=== PATIENT | female | born 1970 | race Caucasian/White ===

== ENCOUNTER → 2020-12-02 14:28 | Outpatient (CLI) | payer OTHER, SELFPAY ==
--- NOTE | ~2020-12-02 | US_ITS ---
EXAMINATION: US pelvic complete w TV EXAM DATE: 12/02/2020 15:00 INDICATION: N83.201 - Unspecified ovarian cyst, right side. TECHNIQUE: Pelvic transabdominal and transvaginal sonogram was performed. There are multiple graysca le and Doppler images available for interpretation. There is no prior study for comparison. FINDINGS: Uterus measures 8.1 x 5.3 x 5.3 cm, and is morphologically normal. Endometrial stripe patricia sures 1.4 mm, within normal limits. There is no free pelvic fluid. Right adnexa: The ovary measures 3.2 x 2.8 x 3.5 cm and is morphologically normal, likely contains th e dominant follicle measuring 2.4 cm. Ovarian vascular flow confirmed. Left adnexa: The ovary measures 2.4 x 1.7 x 2.8 cm and is morphologically normal. Ovarian vascular fl ow confirmed. IMPRESSION: 1. Unremarkable pelvic ultrasound exam. Reviewed, dictated and finalized at location B.
== END ==
PROVIDERS: Visit Provider Obstetrics & Gynecology
DX: N83.201 Unspecified ovarian cyst, right side (principal)
CPT/HCPCS: 76830; 76856

== ENCOUNTER 2021-12-17 14:29 | Outpatient (CLI) | payer OTHER, SELFPAY ==
--- NOTE | ~2021-12-17 | MM_ITS ---
EXAMINATION: MM screening elvis BI w raffy HISTORY: Screening TECHNIQUE: Craniocaudal and mediolateral oblique 3-D tomosynthesis images were obtained and synthetic 2-D images were generated. CAD analysis was submitted and interpreted. COMPARISON: Comparison to multiple prior studies sequentially, with oldest reviewed study dated 04/03. BREAST PARENCHYMAL COMPOSITION: There are scattered areas of fibroglandular density. FINDINGS: There are developing asymmetries in the upper outer quadrant of the right breast with possi ble architectural distortion. The left breast is stable without evidence for malignancy. IMPRESSION: 1. Developing right breast asymmetries with possible architectural distortion. 2. Additional mammographic views and possible breast ultrasound are recommended. BI-RADS Category 0: Incomplete: Needs additional imaging evaluation. Reviewed, dictated and finalized at location A. IMPRESSION: 1. Developing right breast asymmetries with possible architectural distortion. 2. Additional mammographic views and possible breast ultrasound are recommended . BI-RADS Category 0: Incomplete: Needs additional imaging evaluation.
== END 2021-12-17 14:30 | disposition home or self-care (01) ==
PROVIDERS: PCP Physician Assistant Medical; Visit Provider Obstetrics & Gynecology
DX: Z12.31 Encounter for screening mammogram for malignant neoplasm of breast (principal); R92.8 Other abnormal and inconclusive findings on diagnostic imaging of breast
CPT/HCPCS: 77063; 77067

== ENCOUNTER 2022-01-18 13:27 | Outpatient (CLI) | payer OTHER, SELFPAY ==
--- NOTE | ~2022-01-18 | MMUS_ITS ---
EXAMINATION: MM diagnostic elvis RT w raffy, US breast RT limited HISTORY: Follow-up right breast asymmetry TECHNIQUE: Additional 3-D tomosynthesis images of the right breast were performed and synthetic 2-D i mages were generated. CAD analysis was submitted and interpreted. High resolution right breast ultras ound was performed. COMPARISON: Comparison to multiple prior studies sequentially, with oldest reviewed study dated 04/03. BREAST PARENCHYMAL COMPOSITION: BREAST PARENCHYMAL COMPOSITION: There are scattered areas of fibroglandular density. FINDINGS: MAMMOGRAPHIC FINDINGS: There are no suspicious masses, calcifications or architectural distortion in the right breast to sug gest malignancy. Focal asymmetry is less dense with spot compression views. ULTRASOUND: Limited right breast ultrasound: Normal heterogeneous echotexture without focal solid or cystic mass. IMPRESSION: 1. No evidence for malignancy in the right breast. 2. Routine yearly screening mammogram and regular clinical breast examination are recommended. BI-RADS Category 2: Benign finding(s). Reviewed, dictated and finalized at location A. IMPRESSION: 1. No evidence for malignancy in the right breast. 2. Routine yearly screening mammogram and regular clinical breast examination a re recommended. BI-RADS Category 2: Benign finding(s).
== END 2022-01-18 13:28 | disposition home or self-care (01) ==
LOC: ANHIMG 13:27
PROVIDERS: PCP Physician Assistant Medical; Visit Provider Obstetrics & Gynecology
DX: R92.8 Other abnormal and inconclusive findings on diagnostic imaging of breast (principal)
CPT/HCPCS: 76642; 77061; 77065; G0279

== ENCOUNTER 2022-08-18 01:18 | Day surgery (SDC) | payer OTHER, SELFPAY ==
[2022-08-04 15:01] VITALS: BMI 33.8
--- NOTE | 2022-08-04 15:18 | PC.NURSE ---
Report to the Outpatient Waiting Room, entrance under the green pavilion located off [facility], at time _0600 on date _08/18/22 Planned Procedure Time: _0730. Time changes happen often and if your time is changed the preop area will call you the afternoon before. - You and your visitor will be asked to self-screen and do not enter if you have any COVID symptoms. - Only one visitor is requested with a max of two and NO children visitors are allowed at this time. - The patient visitor may be requested to leave or wait in car when not with patient due to distancing restrictions. - A mask is optional within the hospital at this time. Patients may have clear liquids (water, carbonated beverages, clear teas, apple juice) until 3 hours prior to surgery with a maximum of 20 ounces. - No food from midnight until time of surgery - Infants may have breast milk until 4 hours before surgery, infant formula 6 hours prior to surgery. - Children will be allowed to drink immediately following surgery. If applicable, please bring a bottle or sippy cup to assist with drinking. Juice, water, soda, and popsicles are readily available. For infants on formula, please bring formula the day of surgery. Pacifiers are allowed. Take the following medications with a SIP of water the morning of surgery: _n/a__ DO NOT STOP ANY OF YOUR OTHER PRESCRIPTION MEDICATIONS PRIOR TO SURGERY ?EXCEPT THE FOLLOWING Medications to discontinue per physician _vitamins/supplements___ Date to take last dose_08/15/22____ Please no make-up, nail equatorial guinean, hairspray, perfume, deodorant, or body powder the day of surgery. No jewelry (including any body piercings) or valuables the day of surgery, leave them at home. Please take a shower or bath the night before, or the morning of, surgery with an antibacterial soap. Wear comfortable, loose fitting clothing. Children are encouraged to wear pajamas. - Jewelry must be removed prior to entering the operating room. Rings and piercings that are not removed may be cut off. - The hospital will not accept responsibility for valuables. - Please leave all valuables, including medications, at home the day of surgery. If you are going home after surgery, a licensed petroleum transport driver must drive you home. - NO public transportation without another adult if you receive anesthesia. - We recommend that an adult stay with you for 24 hours following discharge. - We also recommend that you do not drive, make important decision, drink alcoholic beverages, or take any drugs that were not prescribed by your health care provider for at least 24 hours after your discharge time. For Pediatric surgeries, we recommend two adults accompany the child home. Follow any additional instructions given to you from your surgeon. If you or anyone in your household have experienced Covid symptoms in the past week, please notify your surgeon or the nurse liaison at the phone number below for possible testing. Telephone instructions given to Leia Gonzalez and asked if any additional questions and then verbalized understanding. Patient advised to call surgeon office or pre surgery nurse liaison [phone] if any additional questions.
--- NOTE | 2022-08-18 08:34 | PM.IMHP ---
H&P: HPI History of Present Illness Date/Time: 08/18/22 08:34 Chief Complaint: Heavy periods Narrative: She has a history of intermittently heavy periods. When options of oral progesterone contraceptive pills progesterone IUD Nexplanon Depo-Provera endometrial ablation hysterectomy. She has had a normal endometrial biopsy recently. Has opted for endometrial ablation. Review of Systems Review of Systems: All systems reviewed & are unremarkable except as noted in HPI and below Constitutional: Constitutional: Reports no additional constitutional complaints Eyes: Eyes: Reports no additional eye complaints Cardiovascular: Cardiovascular: Reports no additional cardiovascular complaints Respiratory: Respiratory: Reports no additional respiratory complaints Gastrointestinal: Gastrointestinal: Reports no additional gastrointestinal complaints Genitourinary: Genitourinary: Reports no additional female genitourinary complaints and Reports as per HPI Integumentary/Breasts: Skin/Breast: Reports system reviewed and no additional complaints, except as docu Neurologic: Reports system reviewed and no additional complaints, except as documented Psychiatric: Psychiatric: Reports no additional psychiatric complaints Hematologic/Lymphatic: Hematologic/Lymphatic: Reports no additional hematologic/lymphatic complaints [facility] Past Medical History Medical History Anemia Body mass index [BMI] 40.0-44.9, adult (10/04/16) Depression Encounter for gynecological examination (general) (routine) without abnormal findings Fatigue Hyperlipidemia Hypertension Hypothyroidism Vaginal delivery x 3 Vaginal irritation Surgical History Surgical History History of appendectomy History of cholecystectomy History of laparoscopy Family History Family History Grandparent Family history of malignant neoplasm of breast Social History Social History Smoking status: Never smoker Second hand tobacco smoke exposure: No Alcohol intake: never Alcohol use details: Occassionally a few times a month maybe Substance use: never Substance use type: does not use Living arrangements: with family Occupation/Education: occupation Gender identity (if verbalized by the patient): Female Sexual Orientation (if Verbalized by the Patient): Straight or Heterosexual Spiritual care concerns: No Meds Home Medications and Allergies Home Medications Medication Instructions Recorded Confirmed Type diltiazem HCl 180 mg capsule,24 180 mg PO DAILY #90 caps 06/03/22 08/04/22 Rx hr,extended release escitalopram oxalate 20 mg tablet 20 mg PO DAILY #90 tabs 06/03/22 08/04/22 Rx esomeprazole magnesium 40 mg 40 mg PO DAILY #90 caps 06/03/22 08/04/22 Rx capsule,delayed release (Nexium) ferrous sulfate 325 mg (65 mg 325 mg PO DAILY #90 tabs 06/03/22 08/04/22 Rx iron) tablet olmesartan 40 mg tablet (Benicar) 40 mg PO DAILY #90 tabs 06/03/22 08/04/22 Rx vitamin B complex (B 1 tablet PO DAILY #90 tabs 06/03/22 08/04/22 Rx Complex-Vitamin B12 tablet) cholecalciferol (vitamin D3) 1,250 50,000 unit PO WEEKLY #12 tabs 06/14/22 08/04/22 Rx mcg (50,000 unit) tablet progesterone micronized 200 mg 200 mg PO QHS 30 days #30 caps 06/18/22 08/04/22 Rx capsule (Prometrium) levothyroxine 50 mcg tablet See Rx Instructions .Route 08/02/22 08/04/22 Rx .COMPLEX #90 tabs bupropion HCl 150 mg 24 hr tablet, 150 mg PO HS 08/04/22 08/04/22 History extended release turmeric 400 mg capsule 1 mg PO HS 08/04/22 08/04/22 History Allergies Allergy/AdvReac Type Severity Reaction Status Date / Time erythromycin base Allergy Intermediate upset Verified 08/04/22 15:15 stomach clindamycin AdvReac Intermediate upset
--- NOTE | 2022-08-18 12:01 | WPDHPUPDATE1 ---
History and Physical Update Update Date/Time: 08/18/22 12:01 History and Physical has been reviewed, including an updated exam of the patient. There are NO changes in the patient's condition. Risks, benefits, and alternatives have been discussed and questions answered. Patient agrees to proceed with procedure.
[2022-08-18 12:05] VITALS: BP 138/80; PULSE 67; RESP 16; TEMP 36.2; O2SAT 99
[2022-08-18] MEDS: ACETAMINOPHEN 500 MG TABLET 1000 MG PO (12:06)
--- NOTE | 2022-08-18 13:12 | WPDANESEPPF ---
Anes - Initial Pre Proc Eval Procedure: Operation Date: 08/18/22 14:00 Proposed Procedures p Hysteroscopy Dilation and Curettage with Aveta Endometrial Ablation - Jessee Raya MD Date/Time: 08/18/22 13:12 Surgeon: Jessee Raya MD Pre Op Diagnosis: menorrhagia Patient Data Age: 52 Gender: F Height: 1.7 m Weight: 114.9 kg Last Vital Signs Temp 97.1 F L 08/18/22 12:05 Pulse 67 08/18/22 12:05 Resp 16 08/18/22 12:05 BP 138/80 08/18/22 12:05 Pulse Ox 99 08/18/22 12:05 O2 Del Method Room Air 08/18/22 12:05 Allergies Allergy/AdvReac Type Severity Reaction Status Date / Time erythromycin base Allergy Intermediate upset Verified 08/18/22 12:04 stomach clindamycin AdvReac Intermediate upset Verified 08/18/22 12:04 stomach Home Medications Medication Instructions Recorded Confirmed Type diltiazem HCl 180 mg capsule,24 180 mg PO DAILY #90 caps 06/03/22 08/04/22 Rx hr,extended release escitalopram oxalate 20 mg tablet 20 mg PO DAILY #90 tabs 06/03/22 08/04/22 Rx esomeprazole magnesium 40 mg 40 mg PO DAILY #90 caps 06/03/22 08/04/22 Rx capsule,delayed release (Nexium) ferrous sulfate 325 mg (65 mg 325 mg PO DAILY #90 tabs 06/03/22 08/04/22 Rx iron) tablet olmesartan 40 mg tablet (Benicar) 40 mg PO DAILY #90 tabs 06/03/22 08/04/22 Rx vitamin B complex (B 1 tablet PO DAILY #90 tabs 06/03/22 08/04/22 Rx Complex-Vitamin B12 tablet) cholecalciferol (vitamin D3) 1,250 50,000 unit PO WEEKLY #12 tabs 06/14/22 08/04/22 Rx mcg (50,000 unit) tablet progesterone micronized 200 mg 200 mg PO QHS 30 days #30 caps 06/18/22 08/04/22 Rx capsule (Prometrium) levothyroxine 50 mcg tablet See Rx Instructions .Route 08/02/22 08/04/22 Rx .COMPLEX #90 tabs bupropion HCl 150 mg 24 hr tablet, 150 mg PO HS 08/04/22 08/04/22 History extended release turmeric 400 mg capsule 1 mg PO HS 08/04/22 08/04/22 History Patient hx anesthesia problems: none Family hx anesthesia problems: none Results Review: All pre-operative results and documents have been reviewed as part of the pre-operative evaluation. PMF Past Medical History Medical History Anemia Body mass index [BMI] 40.0-44.9, adult (10/04/16) Depression Encounter for gynecological examination (general) (routine) without abnormal findings Fatigue Hyperlipidemia Hypertension Hypothyroidism Vaginal delivery x 3 Vaginal irritation Surgical History Surgical History History of appendectomy History of cholecystectomy History of laparoscopy Family History Family History Grandparent Family history of malignant neoplasm of breast Social History Social History Smoking status: Never smoker Second hand tobacco smoke exposure: No Alcohol intake: never Alcohol use details: Occassionally a few times a month maybe Substance use: never Substance use type: does not use Living arrangements: with family Occupation/Education: occupation Gender identity (if verbalized by the patient): Female Sexual Orientation (if Verbalized by the Patient): Straight or Heterosexual Spiritual care concerns: No Anes - Eval Final PreProcedure Day of Procedure 08/18/22 13:12 Patient weight: morbidly obese Airway: Mallampati scale class III ASA classification: III Anesthesia type and monitoring: general GIVS (may use LMA) and standard monitoring Results Review: All pre-operative results and documents have been reviewed as part of the pre-operative evaluation. Informed Consent: The patient's anesthetic plan and its attendant risks and benefits were discussed with the patient/family/POA. Questions were solicited and answers provided to the satisfaction of the patient/family/POA.
--- NOTE | 2022-08-18 13:16 | WPDANESEPPF ---
Anes - Initial Pre Proc Eval Procedure: Operation Date: 08/18/22 14:00 Proposed Procedures p Hysteroscopy Dilation and Curettage with Aveta Endometrial Ablation - Jessee Raya MD Date/Time: 08/18/22 13:16 Surgeon: Jessee Raya MD Pre Op Diagnosis: menorrhagia Patient Data Age: 52 Gender: F Height: 1.7 m Weight: 114.9 kg Last Vital Signs Temp 97.1 F L 08/18/22 12:05 Pulse 67 08/18/22 12:05 Resp 16 08/18/22 12:05 BP 138/80 08/18/22 12:05 Pulse Ox 99 08/18/22 12:05 O2 Del Method Room Air 08/18/22 12:05 Allergies Allergy/AdvReac Type Severity Reaction Status Date / Time erythromycin base Allergy Intermediate upset Verified 08/18/22 12:04 stomach clindamycin AdvReac Intermediate upset Verified 08/18/22 12:04 stomach Home Medications Medication Instructions Recorded Confirmed Type diltiazem HCl 180 mg capsule,24 180 mg PO DAILY #90 caps 06/03/22 08/04/22 Rx hr,extended release escitalopram oxalate 20 mg tablet 20 mg PO DAILY #90 tabs 06/03/22 08/04/22 Rx esomeprazole magnesium 40 mg 40 mg PO DAILY #90 caps 06/03/22 08/04/22 Rx capsule,delayed release (Nexium) ferrous sulfate 325 mg (65 mg 325 mg PO DAILY #90 tabs 06/03/22 08/04/22 Rx iron) tablet olmesartan 40 mg tablet (Benicar) 40 mg PO DAILY #90 tabs 06/03/22 08/04/22 Rx vitamin B complex (B 1 tablet PO DAILY #90 tabs 06/03/22 08/04/22 Rx Complex-Vitamin B12 tablet) cholecalciferol (vitamin D3) 1,250 50,000 unit PO WEEKLY #12 tabs 06/14/22 08/04/22 Rx mcg (50,000 unit) tablet progesterone micronized 200 mg 200 mg PO QHS 30 days #30 caps 06/18/22 08/04/22 Rx capsule (Prometrium) levothyroxine 50 mcg tablet See Rx Instructions .Route 08/02/22 08/04/22 Rx .COMPLEX #90 tabs bupropion HCl 150 mg 24 hr tablet, 150 mg PO HS 08/04/22 08/04/22 History extended release turmeric 400 mg capsule 1 mg PO HS 08/04/22 08/04/22 History Patient hx anesthesia problems: none Family hx anesthesia problems: none Results Review: All pre-operative results and documents have been reviewed as part of the pre-operative evaluation. [facility] Past Medical History Medical History Anemia Body mass index [BMI] 40.0-44.9, adult (10/04/16) Depression Encounter for gynecological examination (general) (routine) without abnormal findings Fatigue Hyperlipidemia Hypertension Hypothyroidism Vaginal delivery x 3 Vaginal irritation Surgical History Surgical History History of appendectomy History of cholecystectomy History of laparoscopy Family History Family History Grandparent Family history of malignant neoplasm of breast Social History Social History Smoking status: Never smoker Second hand tobacco smoke exposure: No Alcohol intake: never Alcohol use details: Occassionally a few times a month maybe Substance use: never Substance use type: does not use Living arrangements: with family Occupation/Education: occupation Gender identity (if verbalized by the patient): Female Sexual Orientation (if Verbalized by the Patient): Straight or Heterosexual Spiritual care concerns: No Anes - Eval Final PreProcedure Day of Procedure 08/18/22 13:16 Patient weight: morbidly obese Results Review: All pre-operative results and documents have been reviewed as part of the pre-operative evaluation. Informed Consent: The patient's anesthetic plan and its attendant risks and benefits were discussed with the patient/family/POA. Questions were solicited and answers provided to the satisfaction of the patient/family/POA.
[2022-08-18] MEDS: ceFAZolin 2 GM/D5W 50 ML 2 GM/50 ML BAG IVPB (13:42)
[2022-08-18] MEDS: LIDOCAINE HCL 2% LOCAL INJ 20 ML VIAL 10 ML INFILTRATE (13:58)
[2022-08-18] MEDS: KETOROLAC 30 MG/ML VIAL (*BKC) IV PUSH (14:10)
[2022-08-18 14:18] VITALS: BP 101/57; PULSE 56; RESP 12; O2SAT 94
[2022-08-18] MEDS: LACTATED RINGERS 1,000 ML 30 ML IV CONT (14:18)
[2022-08-18 14:45] VITALS: BP 102/68; PULSE 60; RESP 12; O2SAT 98
[2022-08-18] MEDS: oxyCODONE HCL (*CRX) 5 MG TAB IR PO (14:49)
[2022-08-18 15:15] VITALS: BP 106/67; PULSE 55; RESP 12; O2SAT 99
--- NOTE | 2022-08-18 15:16 | P.OP_ITS ---
Procedure Note - Detailed Date of Procedure 08/18/22 Pre-op Diagnosis menorrhagia Post-op Diagnosis Same Procedure Performed Diagnostic hysteroscopy and dilation and curettage attempted endometrial ablation Surgeon Jessee Raya MD Anesthesia Local Indications Menorrhagia Findings Uterine cavity normal, appears narrow. uterus sound to 9.5cm, cervical length 4.5, Namita apparatus would not release x 2. Description of Procedure after informed consent was obtained patient was taken to operating room and adequate IV sedation was administered she was prepped and draped in sterile fashion attention was turned to the vagina speculum was inserted single-tooth tenaculum placed on the anterior lip of the cervix the cervix was sounded to 9 cm cervix was dilated to a 8 Grijalva dilator hysteroscope was inserted cavity appeared normal the Namita endometrial pruritis was inserted and once the arms were released it would not go into the green this was done twice instilled in that going to the green this was removed the uterus was sounded again with the same measurements. there was noted to be some bubbles coming from the 1st apparatus therefore another apparatus was inserted and this again would not a llow the arms to dislodge. Therefore was unable to perform the endometrial ablation. A curettage was then performed with small amount of tissue obtained. The single-tooth tenaculum was removed hemostasis was noted patient tolerated procedure well sponge count correct patient was taken to recovery room. Drains No Packing No Pathology Yes ( Endometrial cur) Complications No immediate complications Condition Stable Disposition Same day [facility] Billing Surgery - Charge Forward: Surgery Billing
== END 2022-08-18 15:35 | disposition home or self-care (01) ==
PROVIDERS: PCP Physician Assistant Medical; Visit Provider Obstetrics & Gynecology
PROC: 0U5B8ZZ Destruction of Endometrium, Via Natural or Artificial Opening Endoscopic (ICD-10-PCS; CPT 58563; principal; 2022-08-18 14:00)
DX: N92.0 Excessive and frequent menstruation with regular cycle (principal); Z53.8 Procedure and treatment not carried out for other reasons; D64.9 Anemia, unspecified; I10 Essential (primary) hypertension; E78.5 Hyperlipidemia, unspecified; E03.9 Hypothyroidism, unspecified; F32.A Depression, unspecified; E66.01 Morbid (severe) obesity due to excess calories; Z68.39 Body mass index [BMI] 39.0-39.9, adult
CPT/HCPCS: 58563; 88305; A9270; J0690; J1100; J1885; J2250; J2405; J2704; J3010; J7120

== ENCOUNTER 2023-08-14 13:48 | Emergency (ER) | payer OTHER, SELFPAY ==
--- NOTE | ~2023-08-14 | XR_ITS ---
Right Hand Technique: PA, oblique, and lateral views were obtained. Clinical History: Injury Findings: No acute fracture or dislocation is seen. Osseous alignment is anatomic. Joint spaces are p reserved. Soft tissues are unremarkable. Impression: Unremarkable right hand. Reviewed, dictated and finalized at location . TARY TECHNICIAN Impression: Unremarkable right hand.
--- NOTE | ~2023-08-14 | XR_ITS ---
Right Forearm AP and lateral views of the right forearm were performed. Clinical History: Injury Findings: No fracture or dislocation is seen. Osseous alignment in anatomic. Joint spaces are prese rved. Soft tissues are unremarkable. Impression: Unremarkable exam. Reviewed, dictated and finalized at [facility]. HEARTH WORKER Impression: Unremarkable exam.
[2023-08-14 13:52] VITALS: BP 142/83; PULSE 63; RESP 20; TEMP 36.7; O2SAT 99
--- NOTE | 2023-08-14 14:29 | ED.GENADULT ---
HPI - General Adult General Chief complaint: Extremity Injury, Upper Stated complaint: right wrist/forearm injury Source: patient Mode of arrival: ambulatory Limitations: no limitations History of Present Illness HPI narrative: Patient presents for evaluation of pain in her right upper extremity after a fall that occurred today. She tripped in a parking lot at a grocery store. She landed with her right arm outstretched. She did not hit her head. No loss of consciousness. She now has pain in the right wrist, right elbow lateral aspect of the right hand. She rates her pain 5/10 in severity with aching and burning sensations present. She has some tingling in the 1st, 2nd and 3rd digits of the right hand. She has not taken any medication for her pain. No loss of ROM however movement makes her pain worse. Related Data Home Medications Medication Instructions Recorded Confirmed turmeric 400 mg capsule 1 mg PO HS 08/04/22 08/04/22 Allergies Allergy/AdvReac Type Severity Reaction Status Date / Time erythromycin base Allergy Intermediate upset Verified 08/14/23 14:03 stomach clindamycin AdvReac Intermediate upset Verified 08/14/23 14:03 stomach [id number] Reductase AdvReac Intermediate Muscle Pain Verified 08/14/23 14:03 Inhibitor Review of Systems Review of Systems: CONSTITUTIONAL: Denies fever, chills, or sweats. EYES: Denies visual changes, redness, or discharge. ENT: Denies rhinorrhea, congestion, sore throat, or otalgia. CARDIOVASCULAR: Denies chest pain, palpitations, or edema. RESPIRATORY: Denies cough or dyspnea. GASTROINTESTINAL: Denies abdominal pain, nausea, vomiting, or diarrhea. GENITOURINARY: Denies dysuria or hematuria. SKIN: Denies rash or itching. MUSCULOSKELETAL: Reports pain right hand, wrist and elbow NEUROLOGIC: Reports tingling in the 1st, 2nd and 3rd digits of the right hand. PSYCHIATRIC: Denies anxiety or depression. [facility] Past Medical History Medical History Anemia Body mass index [BMI] 40.0-44.9, adult (10/04/16) Depression Encounter for gynecological examination (general) (routine) without abnormal findings Fatigue GERD (gastroesophageal reflux disease) Hypertension Hypothyroidism Vaginal delivery x 3 Vaginal irritation Surgical History Surgical History History of appendectomy History of cholecystectomy History of laparoscopy Family History Family History Grandparent Family history of malignant neoplasm of breast Social History Social History Smoking status: Never smoker Second hand tobacco smoke exposure: No Alcohol intake: never Alcohol use details: Occassionally a few times a month maybe Substance use: never Substance use type: does not use Lack of Transportation: No Lack of Food: Never True Current Housing: I Have Housing Concerned About Future Housing: No Difficulty Paying Gas/Electric Bills: No Difficulty Paying for Meds: No Currently Unemployed: No Difficulty w/ Childcare or Family Care: No Living arrangements: with family Occupation/Education: occupation Gender identity (if verbalized by the patient): Female Sexual Orientation (if Verbalized by the Patient): Straight or Heterosexual Spiritual care concerns: No Exam Narrative: GENERAL: Well-appearing, well-nourished, and in no acute distress. HEAD: Normocephalic, atraumatic. EYES: PERRLA and EOMI. ENT: Nares clear, no rhinorrhea or epistaxis. Mucous membranes moist. Oropharynx without tonsillar hypertrophy exudate or other lesions. Bilateral TMs pearly coffey nonbulging NECK: Supple. No adenopathy or masses. No carotid bruits or JVD CHEST: Clear to auscultation. No respiratory distress. No wheezes ra
[2023-08-14] MEDS: KETOROLAC (*BKC) 60 MG/2 ML VIAL IM (14:34)
== END 2023-08-14 15:04 | disposition home or self-care (01) ==
PROVIDERS: Emergency Provider Nurse Practitioner; PCP Physician Assistant Medical
DX: S63.501A Unspecified sprain of right wrist, initial encounter (principal); S66.911A Strain of unspecified muscle, fascia and tendon at wrist and hand level, right hand, initial encounter; W19.XXXA Unspecified fall, initial encounter; K21.9 Gastro-esophageal reflux disease without esophagitis; I10 Essential (primary) hypertension; E03.9 Hypothyroidism, unspecified
CPT/HCPCS: 73090; 73130; 96372; 99213; G0463; J1885

== ENCOUNTER 2024-01-18 13:57 | Outpatient (CLI) | payer OTHER, SELFPAY ==
--- NOTE | ~2024-01-18 | CT_ITS ---
EXAMINATION: CT sinus wo con DATE: 01/18/2024 14:21 INDICATION: Chronic congestion of the sinuses TECHNIQUE: Computed tomography (CT) of the paranasal sinuses was performed without intravenous contra st. The dose-length product was 272.93 mGy-cm. Automated exposure control and iterative reconstructio n technique were employed. COMPARISON: CT dated 03/01/2008 FINDINGS: There is mucosal thickening of the maxillary, left sphenoid sinuses. No significant mucoper iosteal reaction. There is a mucous retention cyst of the left maxillary sinus. Rightward nasal septa l deviation. There is partial occlusion of the right ostiomeatal unit by soft tissue. Left ostiomeata l unit is patent. Mastoids are pneumatized. IMPRESSION: 1. Mild-moderate sinus disease. Reviewed, dictated and finalized at location B.
--- NOTE | ~2024-01-18 | MR_ITS ---
EXAMINATION: MR brain/brain stem wo/w con DATE: 01/18/2024 14:42 INDICATION: Headache TECHNIQUE: Magnetic resonance imaging (MRI) of the brain and brainstem was performed without and with 20 mL Multihance intravenous contrast. Sequences included sagittal and axial T1-weighted SE, axial d iffusion-weighted FS SE, , axial T2-weighted FLAIR, and axial T2-weighted FSE. Postcontrast axial and coronal T1-weighted SE was obtained. Apparent diffusion coefficient (ADC) maps were created. COMPARISON: None. FINDINGS: There are no areas of restricted diffusion to suggest acute infarction. No intracranial hemorrhage or abnormal intracranial mass lesion. There are a few small scattered foci of nonspecific increased T2- weighted signal intensity in the cerebral white matter, predominantly involving the deep and perivent ricular white matter which within normal limits for age. There are no intraparenchymal signal abnorma lities seen on the other pulse sequences. The ventricles are symmetric and normal in size. There are no abnormal extra-axial fluid collections. Flow voids are seen in the cerebral arteries on the T2-ginger ghted sequences consistent with their expected patency. Visualized orbits and soft tissues are unrema rkable. Mild mucosal thickening in the paranasal sinuses with mucous retention cysts along the floor of the bilateral maxillary sinuses and at the anterior left sphenoid sinus. There are no areas of abn ormal enhancement on the post contrast images. IMPRESSION: 1. Normal for age brain MR with no acute intracranial process or abnormally enhancing brain lesions. Reviewed, dictated and finalized at location A. IMPRESSION: 1. Normal for age brain MR with no acute intracranial process or abnormally enh ancing brain lesions.
== END 2024-01-18 13:58 ==
PROVIDERS: PCP Physician Assistant Medical; Visit Provider Physician Assistant Medical
DX: R51.9 Headache, unspecified (principal); J32.9 Chronic sinusitis, unspecified
CPT/HCPCS: 70486; 70553; A9577

== ENCOUNTER 2024-03-21 02:10 | Day surgery (SDC) | payer OTHER, SELFPAY ==
[2024-03-02 10:45] VITALS: BMI 39.3
--- NOTE | 2024-03-20 14:47 | WPDANESEPPF ---
Anes - Initial Pre Proc Eval Procedure: Operation Date: 03/21/24 08:30 Proposed Procedures p Esophagogastroduodenoscopy - Adam Grider MD Date/Time: 03/20/24 14:47 Surgeon: Adam Grider MD Pre Op Diagnosis: Dysphagia Patient Data Age: 54 Gender: F Height: 1.7 m Weight: 114 kg Allergies Allergy/AdvReac Type Severity Reaction Status Date / Time erythromycin base Allergy Intermediate upset Verified 03/02/24 10:43 stomach clindamycin AdvReac Intermediate upset Verified 03/02/24 10:43 stomach [id number] Reductase AdvReac Intermediate Muscle Pain Verified 03/02/24 10:43 Inhibitor ezetimibe [From Zetia] AdvReac Unknown Unknown Verified 03/02/24 10:43 Home Medications Medication Instructions Recorded Confirmed Type vitamin B complex (B 1 tablet PO DAILY #90 tabs 06/03/22 03/02/24 Rx Complex-Vitamin B12 tablet) turmeric 400 mg capsule 1 mg PO HS 08/04/22 03/02/24 History bupropion HCl 150 mg 24 hr tablet, 150 mg PO HS #90 tabs 12/26/23 03/02/24 Rx extended release diltiazem HCl 180 mg capsule,24 180 mg PO DAILY #90 caps 12/26/23 03/02/24 Rx hr,extended release escitalopram oxalate 20 mg tablet 20 mg PO DAILY #90 tabs 12/26/23 03/02/24 Rx esomeprazole magnesium 40 mg 40 mg PO DAILY #90 caps 12/26/23 03/02/24 Rx capsule,delayed release (Nexium) hydrocortisone 2.5 % topical cream 1 applic topical BID PRN rash #30 12/26/23 03/02/24 Rx grams levothyroxine 50 mcg tablet 50 mcg PO DAILY #90 tabs 12/26/23 03/02/24 Rx olmesartan 40 mg tablet (Benicar) 40 mg PO DAILY #90 tabs 12/26/23 03/02/24 Rx ferrous sulfate 325 mg (65 mg 325 mg PO DAILY #90 tabs 12/27/23 03/02/24 Rx iron) tablet Patient hx anesthesia problems: none Family hx anesthesia problems: none Results Review: All pre-operative results and documents have been reviewed as part of the pre-operative evaluation. PMFSH Past Medical History Medical History Anemia Body mass index [BMI] 40.0-44.9, adult (10/04/16) Depression Encounter for gynecological examination (general) (routine) without abnormal findings Fatigue GERD (gastroesophageal reflux disease) Hypertension Hypothyroidism Vaginal delivery x 3 Vaginal irritation Surgical History Surgical History History of appendectomy History of cholecystectomy History of laparoscopy Family History Family History Grandparent Family history of malignant neoplasm of breast Social History Social History Smoking status: Never smoker Second hand tobacco smoke exposure: No Alcohol intake: current Drinks per week: 1 Alcohol use details: Occassionally a few times a month maybe Substance use: never Substance use type: does not use Lack of Transportation: No Lack of Food: Never True Current Housing: I Have Housing Concerned About Future Housing: No Difficulty Paying Gas/Electric Bills: No Difficulty Paying for Meds: No Currently Unemployed: No Difficulty w/ Childcare or Family Care: No Living arrangements: with family Occupation/Education: occupation Gender identity (if verbalized by the patient): Female Sexual Orientation (if Verbalized by the Patient): Straight or Heterosexual Spiritual care concerns: No Anes - Eval Final PreProcedure Day of Procedure 03/20/24 14:47 Patient weight: obese Heart: regular rate and rhythm Lungs: clear to auscultation Airway: Mallampati scale class II Neurological: alert and oriented Last oral intake: >/= 8 hours ASA classification: III Emergent: no Anesthetic plan: proceed Anesthesia type and monitoring: general GIVS and standard monitoring Results Review: All pre-operative results and documents have been reviewed
[2024-03-21 07:31] VITALS: BP 136/82; PULSE 60; RESP 18; TEMP 36.1; O2SAT 99
[2024-03-21 07:33] LABS: BEDSIDEPREGUCG Negative (Negative)
[2024-03-21] MEDS: LACTATED RINGERS 1,000 ML 150 ML IV CONT (07:39)
--- NOTE | 2024-03-21 08:36 | PM.HPGS ---
History of Present Illness History of Present Illness Consent: Risks, benefits, and alternatives have been discussed and questions answered. Patient agrees to proceed with procedure. Chief complaint: Dysphagia Narrative: Leia Gonzalez is a 54 year old female with choking after eating/drinking, also h/o GERD on nexium Review of Systems Review of Systems: All systems reviewed & are unremarkable except as noted in HPI and below PMFSH Past Medical History Medical History (Updated 03/21/24 @ 08:37 by Adam Grider MD) Anemia Body mass index [BMI] 40.0-44.9, adult (10/04/16) Depression Dysphagia Encounter for gynecological examination (general) (routine) without abnormal findings Fatigue GERD (gastroesophageal reflux disease) Hypertension Hypothyroidism Vaginal delivery x 3 Vaginal irritation Surgical History Surgical History History of appendectomy History of cholecystectomy History of laparoscopy Family History Family History Grandparent Family history of malignant neoplasm of breast Social History Social History Smoking status: Never smoker Second hand tobacco smoke exposure: No Alcohol intake: current Drinks per week: 1 Alcohol use details: Occassionally a few times a month maybe Substance use: never Substance use type: does not use Lack of Transportation: No Lack of Food: Never True Current Housing: I Have Housing Concerned About Future Housing: No Difficulty Paying Gas/Electric Bills: No Difficulty Paying for Meds: No Currently Unemployed: No Difficulty w/ Childcare or Family Care: No Living arrangements: with family Occupation/Education: occupation Gender identity (if verbalized by the patient): Female Sexual Orientation (if Verbalized by the Patient): Straight or Heterosexual Spiritual care concerns: No Meds Home Medications and Allergies Home Medications Medication Instructions Recorded Confirmed Type vitamin B complex (B 1 tablet PO DAILY #90 tabs 06/03/22 03/21/24 Rx Complex-Vitamin B12 tablet) turmeric 400 mg capsule 1 mg PO HS 08/04/22 03/21/24 History bupropion HCl 150 mg 24 hr tablet, 150 mg PO HS #90 tabs 12/26/23 03/21/24 Rx extended release diltiazem HCl 180 mg capsule,24 180 mg PO DAILY #90 caps 12/26/23 03/21/24 Rx hr,extended release escitalopram oxalate 20 mg tablet 20 mg PO DAILY #90 tabs 12/26/23 03/21/24 Rx esomeprazole magnesium 40 mg 40 mg PO DAILY #90 caps 12/26/23 03/21/24 Rx capsule,delayed release (Nexium) hydrocortisone 2.5 % topical cream 1 applic topical BID PRN rash #30 12/26/23 03/21/24 Rx grams levothyroxine 50 mcg tablet 50 mcg PO DAILY #90 tabs 12/26/23 03/21/24 Rx olmesartan 40 mg tablet (Benicar) 40 mg PO DAILY #90 tabs 12/26/23 03/21/24 Rx ferrous sulfate 325 mg (65 mg 325 mg PO DAILY #90 tabs 12/27/23 03/21/24 Rx iron) tablet Allergies Allergy/AdvReac Type Severity Reaction Status Date / Time erythromycin base Allergy Intermediate upset Verified 03/21/24 07:23 stomach clindamycin AdvReac Intermediate upset Verified 03/21/24 07:23 stomach [id number] Reductase AdvReac Intermediate Muscle Pain Verified 03/21/24 07:23 Inhibitor ezetimibe [From Zetia] AdvReac Unknown Unknown Verified 03/21/24 07:23 Vital Signs Vital Signs - 24 hr 03/21/24 07:31 Temperature 97 F L Pulse Rate 60 Respiratory Rate 18 Blood Pressure 136/82 Pulse Oximetry 99 Oxygen Delivery Room Air Exam Const: General: comfortable and no acute distress HENMT: Face/Nose/Sinus: Normal nares present Eyes: General: appearance normal, both eyes and all related structures Neck: Neck: no JVD Resp: Auscultation: clear to auscultation bilaterally Cardio: Rate: regular rate Rhythm: regular rhyt
[2024-03-21] MEDS: BENZOCAINE (*SP) 60 ML SPRAY CAN (HURRICAINE) 1 SPRAY MUCOUS MEM (08:39)
[2024-03-21 08:46] VITALS: BP 155/64; PULSE 61; RESP 18; O2SAT 100
[2024-03-21 08:56] VITALS: BP 174/82; PULSE 63; RESP 22; O2SAT 100
[2024-03-21 09:06] VITALS: BP 181/79; PULSE 64; RESP 20; O2SAT 100
== END 2024-03-21 09:15 | disposition home or self-care (01) ==
PROVIDERS: Anesthesiology; PCP Physician Assistant Medical; Visit Provider Internal Medicine Gastroenterology
PROC: 0DJ08ZZ Inspection of Upper Intestinal Tract, Via Natural or Artificial Opening Endoscopic (ICD-10-PCS; CPT 43235; principal; 2024-03-21 08:30)
DX: K29.50 Unspecified chronic gastritis without bleeding (principal); K31.7 Polyp of stomach and duodenum; K21.9 Gastro-esophageal reflux disease without esophagitis; I10 Essential (primary) hypertension; E03.9 Hypothyroidism, unspecified; D64.9 Anemia, unspecified; F32.A Depression, unspecified; E66.9 Obesity, unspecified; Z68.39 Body mass index [BMI] 39.0-39.9, adult; Z98.890 Other specified postprocedural states; Z90.49 Acquired absence of other specified parts of digestive tract; Z80.3 Family history of malignant neoplasm of breast
CPT/HCPCS: 43239; 88305; J2001; J2704; J7120

== ENCOUNTER 2024-05-30 14:59 | Outpatient (CLI) | payer OTHER, SELFPAY ==
--- NOTE | ~2024-05-30 | MM_ITS ---
EXAMINATION: MM screening elvis BI w raffy HISTORY: Screening TECHNIQUE: Craniocaudal and mediolateral oblique 3-D tomosynthesis images were obtained and synthetic 2-D images were generated. CAD analysis was submitted and interpreted. COMPARISON: Comparison to multiple prior studies sequentially, with oldest reviewed study dated 03/18. BREAST PARENCHYMAL COMPOSITION: Not dense: There are scattered areas of fibroglandular density. FINDINGS: There is no evidence of suspicious mass, calcification, or architectural distortion to sugg est malignancy in either breast. There has been no suspicious interval change. IMPRESSION: 1. No mammographic evidence of malignancy. 2. Recommend routine screening mammography in one year. BI-RADS Category 1: Negative Reviewed, dictated and finalized at location B. [employer] M[employer]INE [employer]ATOR
== END 2024-05-30 15:00 | disposition home or self-care (01) ==
LOC: MICIMG 14:59
PROVIDERS: PCP Obstetrics & Gynecology; Visit Provider Physician Assistant Medical
DX: Z12.31 Encounter for screening mammogram for malignant neoplasm of breast (principal)
CPT/HCPCS: 77063; 77067